=== PATIENT | male | born 1990 | race Caucasian/White ===

== ENCOUNTER 2018-09-08 07:21 | Emergency (ER) | payer OTHER ==
[~2018-09-08] VITALS: Ht 180.3 cm; Wt 77.1 kg
--- NOTE | 2018-09-08 07:35 | NUR ---
Dr cortes at the bedside for MSE. Wound cleaned w/ n/s.
[2018-09-08] MEDS ORDERED: LET TOPICAL SOLUTION 8 ML UDC ONE (07:39)
[2018-09-08] MEDS ORDERED: TDAP DIPH,PERTUSS,TET VAC/PF 0.5 ML DISP.SYRIN IM ONE ×2 (07:40→07:45)
[2018-09-08] MEDS ORDERED: LET TOPICAL SOLUTION 8 ML UDC TOP ONE (07:45)
[2018-09-08] MEDS ORDERED: SODIUM BICARBONATE 4.2 % (NEUT) 5 ML VIAL TP ONE (07:45)
[2018-09-08] MEDS ORDERED: LIDOCAINE HCL 2% 20 ML VIAL TP ONE (07:45)
[2018-09-08 08:19] VITALS: BP 127/67
--- NOTE | 2018-09-08 08:22 | NUR ---
Patient discharged to home in stable conditon. Written and verbal after care instructions given. Patient verbalizes understanding of instructions.
== END 2018-09-08 08:22 | disposition home or self-care (01) ==
LOC: ER 07:21
DX: S01.111A Laceration without foreign body of right eyelid and periocular area, initial encounter (principal); W01.0XXA Fall on same level from slipping, tripping and stumbling without subsequent striking against object, initial encounter; Y93.89 Activity, other specified; Y92.89 Other specified places as the place of occurrence of the external cause; Y99.8 Other external cause status
CPT/HCPCS: 90715; A4663; J3490

== ENCOUNTER 2020-03-10 19:56 | Emergency (ER) | payer OTHER ==
[~2020-03-10] VITALS: Ht 182.9 cm; Wt 77.1 kg
[2020-03-10] MEDS ORDERED: SULFAMETH/TRIMETH 800/160 MG TABLET PO ONE (20:15)
[2020-03-10] MEDS ORDERED: FLUCONAZOLE 100 MG TABLET PO ONE (20:15)
[2020-03-10] MEDS ORDERED: HYDROCODONE/APAP 5-325MG TABLET PO ONE (20:15)
[2020-03-10] MEDS ORDERED: CEFTRIAXONE 1 G VIAL IM ONE (20:15)
[2020-03-10] MEDS ORDERED: CEFTRIAXONE 1 G VIAL ONE (20:18)
[2020-03-10] MEDS ORDERED: FLUCONAZOLE 100 MG TABLET ONE (20:18)
[2020-03-10] MEDS ORDERED: SULFAMETH/TRIMETH 800/160 MG TABLET ONE (20:18)
[2020-03-10] MEDS ORDERED: HYDROCODONE/APAP 5-325MG TABLET ONE (20:18)
[2020-03-10] MEDS ORDERED: LIDOCAINE HCL 1% 20 ML VIAL ONE (20:18)
[2020-03-10 20:31] VITALS: BP 120/75
--- NOTE | 2020-03-10 20:31 | NUR ---
Patient given written and verbal discharge instructions. Patient verbalizes understanding of instructions. Patient is ambulatory with steady gait. Refuses offer of residential placement. Patient given list of available shelters in surrounding area.
== END 2020-03-10 20:32 | disposition home or self-care (01) ==
LOC: ER 19:58
DX: L03.031 Cellulitis of right toe (principal); B35.3 Tinea pedis; Z59.0 Homelessness
CPT/HCPCS: 96372; 99284; J0696; J3490; A4663

== ENCOUNTER 2020-03-11 22:47 | Emergency (ER) | payer OTHER ==
[~2020-03-11] VITALS: Ht 180.3 cm; Wt 77.1 kg
--- NOTE | 2020-03-11 23:00 | NUR ---
Dr. Gil at bedside for MSE.
[2020-03-11] MEDS ORDERED: HYDROCODONE/APAP 10-325 MG TABLET ONE (23:13)
[2020-03-11] MEDS ORDERED: SULFAMETH/TRIMETH 800/160 MG TABLET ONE (23:14)
[2020-03-11] MEDS: SULFAMETH/TRIMETH 800/160 MG TABLET PO ONE (23:14)
[2020-03-11] MEDS: HYDROCODONE/APAP 10-325 MG TABLET PO ONE (23:15)
--- NOTE | 2020-03-11 23:15 | NUR ---
Patient given written and verbal discharge instructions. Patient verbalizes understanding of instructions. Patient is ambulatory with steady gait. Refuses offer of half-way placement. Patient given list of available shelters in surrounding area. Patient out of ER with steady gait, no acute signs of distress, VSS, all belongings taken, refused all services at this time, will arrange own transportation.
[2020-03-11 23:17] VITALS: BP 129/77
== END 2020-03-11 23:18 | disposition home or self-care (01) ==
LOC: ER 22:47
DX: Z76.0 Encounter for issue of repeat prescription (principal); L03.031 Cellulitis of right toe; Z59.0 Homelessness
CPT/HCPCS: A4663

== ENCOUNTER 2020-04-13 02:07 | Emergency (ER) | payer OTHER ==
[~2020-04-13] VITALS: Ht 180.3 cm; Wt 79.4 kg
[2020-04-13] MEDS ORDERED: LIDOCAINE HCL 1% 20 ML VIAL IJ ONE (02:45)
[2020-04-13] MEDS ORDERED: NEOMY/BACITRA/POLYMYXIN B OINT UD PACKET TP ONE (03:25)
[2020-04-13] MEDS ORDERED: AMOXICILLIN-CLAVUL 875-125MG TABLET PO ONE (03:30)
--- NOTE | 2020-04-13 03:30 | NUR ---
Patient reports he thinks there is a piece of glass stuck in his right index finger from holding his broken phone. He c/o redness & swelling to the area for 2 days. Incision & drainage performed by Dr. López to patient's right index finger. Xray done. Right index finger wrapped with nonadherent dressing, conforming bandage, & tube gauze.
[2020-04-13] MEDS ORDERED: AMOXICILLIN-CLAVUL 875-125MG TABLET ONE (03:36)
[2020-04-13] MEDS ORDERED: IBUPROFEN 800 MG TABLET ONE (03:37)
[2020-04-13] MEDS ORDERED: IBUPROFEN 800 MG TABLET PO ONE (03:45)
[2020-04-13 03:46] VITALS: BP 122/68
--- NOTE | 2020-04-13 03:46 | NUR ---
Patient discharged to home in stable condition. Written and verbal after care instructions given. Patient verbalizes understanding of instructions. Stressed follow up or return to ER for worsening s/s.
== END 2020-04-13 03:46 | disposition home or self-care (01) ==
LOC: ER 02:11
DX: L03.011 Cellulitis of right finger (principal); Z59.0 Homelessness; S61.22 Laceration with foreign body of finger without damage to nail; W25.XXXS Contact with sharp glass, sequela; W45.8XXS Other foreign body or object entering through skin, sequela; F17.210 Nicotine dependence, cigarettes, uncomplicated
CPT/HCPCS: 26011; 73140; 99283; J3490; A4217; A4663

== ENCOUNTER 2020-04-14 20:01 | Emergency (ER) | payer OTHER ==
[~2020-04-14] VITALS: Ht 182.9 cm; Wt 79.4 kg
--- NOTE | 2020-04-14 21:40 | NUR ---
Dr. López at bedside for MSE.
--- NOTE | 2020-04-14 21:45 | NUR ---
Tretament done to right index finger per order.
[2020-04-14] MEDS ORDERED: NEOMY/BACITRA/POLYMYXIN B OINT UD PACKET TP ONE ×2 (21:52→22:00)
--- NOTE | 2020-04-14 21:56 | NUR ---
Patient discharged to home in stable condition. Written and verbal after care instructions given. Patient verbalizes understanding of instructions. Stressed follow up or return to ER for worsening s/s. Patient ambulated with stable gait.
[2020-04-14] MEDS ORDERED: AMOXICILLIN-CLAVUL 875-125MG TABLET ONE (21:59)
[2020-04-14] MEDS ORDERED: AMOXICILLIN-CLAVUL 875-125MG TABLET PO ONE (22:00)
[2020-04-14] MEDS ORDERED: IBUPROFEN 600 MG TABLET PO ONE (22:00)
[2020-04-14] MEDS ORDERED: IBUPROFEN 600 MG TABLET ONE (22:04)
--- NOTE | 2020-04-14 22:05 | NUR ---
Patient discharged to home in stable condition. Written and verbal after care instructions given. Patient verbalizes understanding of instructions. Stressed follow up or return to ER for worsening s/s. Pt ambulated out of the ER with steady gait. All belongings with pt.
[2020-04-14 22:06] VITALS: BP 125/77
== END 2020-04-14 22:07 | disposition home or self-care (01) ==
LOC: ER 20:02
DX: Z48.817 Encounter for surgical aftercare following surgery on the skin and subcutaneous tissue (principal); L03.011 Cellulitis of right finger; Z59.0 Homelessness
CPT/HCPCS: A4217; A4663

== ENCOUNTER 2020-04-19 22:18 | Emergency (ER) | payer OTHER ==
[~2020-04-19] VITALS: Ht 177.8 cm; Wt 68.0 kg
[2020-04-19] MEDS ORDERED: NEOMY/BACITRA/POLYMYXIN B OINT UD PACKET TP ONE ×2 (22:30→22:33)
[2020-04-19] MEDS ORDERED: SULFAMETH/TRIMETH 800/160 MG TABLET PO ONE (22:30)
[2020-04-19] MEDS ORDERED: SULFAMETH/TRIMETH 800/160 MG TABLET ONE (22:33)
== END 2020-04-19 22:38 | disposition home or self-care (01) ==
LOC: ER 22:20
DX: Z48.817 Encounter for surgical aftercare following surgery on the skin and subcutaneous tissue (principal); L03.011 Cellulitis of right finger; Z59.0 Homelessness
CPT/HCPCS: A4663

== ENCOUNTER 2021-01-30 23:58 | Emergency (ER) | payer OTHER ==
[~2021-01-30] VITALS: Ht 180.3 cm; Wt 77.1 kg
--- NOTE | 2021-01-31 00:23 | NUR ---
Dr. Zepeda on bedside for MSE.
--- NOTE | 2021-01-31 00:23 | NUR ---
Patient arrived at the ER with cc of penile discharge x3 days, states having unprotected sex. 6/10 pain, described as sharp/burning upon urination. He states prior history of having an STD before.
[2021-01-31] MEDS ORDERED: CEFTRIAXONE 500 MG VIAL IM ONE (00:30)
[2021-01-31] MEDS ORDERED: DOXYCYCLINE HYCLATE 100 MG TABLET PO ONE (00:30)
[2021-01-31] MEDS ORDERED: DOXYCYCLINE HYCLATE 100 MG TABLET ONE (00:39)
[2021-01-31] MEDS ORDERED: CEFTRIAXONE 500 MG VIAL ONE (00:40)
[2021-01-31] MEDS ORDERED: LIDOCAINE HCL 1% 20 ML VIAL ONE (00:42)
[2021-01-31 00:52] LABS: *BILIRUBIN,URIN 1+ (NEGATIVE); *CLARITY,URINE CLOUDY (CLEAR); *COLOR,URINE AMBER (YELLOW); *KETONES,URINE 1+ (NEGATIVE); LEUKOCYTE ESTERASE ,URINE 1+ (NEGATIVE); NITRITE, URINE NEGATIVE (NEGATIVE); PH,URINE 5.5 (5.0-8.0); UGLUCOSE NEGATIVE (NEGATIVE)
[2021-01-31 00:59] LABS: *BLOOD, URINE TRACE (NEGATIVE)
[2021-01-31] MEDS ORDERED: DOXY100C41 PO (01:00)
[2021-01-31 01:02] LABS: BACTERIA,URINE FEW /HPF (NONE SEEN); SQUAMOUS EPITHELIAL CELL,UR NONE SEEN /HPF (NONE SEEN); WBC,URINE TNTC /HPF (0-3)
--- NOTE | 2021-01-31 01:05 | NUR ---
Dr. Zepeda on bedside .
[2021-01-31] MEDS ORDERED: PHEN95TA44 PO (01:13)
[2021-01-31] MEDS ORDERED: NITR100C PO (01:13)
[2021-01-31] MEDS ORDERED: PHENAZOPYRIDINE HCL 100 MG TABLET PO ONE (01:15)
[2021-01-31] MEDS ORDERED: NITROFURANTOIN/NITROFURAN MAC 100 MG CAPSULE PO ONE (01:15)
--- NOTE | 2021-01-31 01:20 | NUR ---
Patient discharged to home in stable condition. Written and verbal after care instructions given. Patient verbalizes understanding of instructions. Stressed follow up or return to ER for worsening s/s. Patient ambulated fr the ER with steady gait. All belongings with patient.
[2021-01-31 01:32] VITALS: BP 111/70
== END 2021-01-31 01:20 | disposition home or self-care (01) ==
LOC: ER 01-31 00:01
DX: N39.0 Urinary tract infection, site not specified (principal); Z20.2 Contact with and (suspected) exposure to infections with a predominantly sexual mode of transmission; Z59.0 Homelessness; J45.909 Unspecified asthma, uncomplicated
CPT/HCPCS: 81001; 87086; 87491; 96372; 99283; J0696; J3490; A4663